=== PATIENT | female | born 1985 | race Hispanic/Latino ===

== ENCOUNTER 2017-03-04 06:31 | Day surgery (SDC) | payer OTHER ==
[~2017-03-04] VITALS: Ht 157.5 cm; Wt 122.9 kg
[2017-03-04] VITALS (12 sets, daily range): BP systolic 111–144; BP diastolic 60–78; PULSE 65–97; RESP 12–19; O2SAT 94–100
[2017-03-04] MEDS ORDERED: Neostigmine 1 mg/mL 10 mL Inj ONE (06:32)
[2017-03-04] MEDS ORDERED: Ondansetron 2 mg/mL 2 mL Inj ONE (06:32)
[2017-03-04] MEDS ORDERED: Succinylcholine Chloride 20 mg/mL 5 mL Inj ONE (06:32)
[2017-03-04] MEDS ORDERED: Rocuronium 10 mg/mL 5 mL Inj ONE (06:32)
[2017-03-04] MEDS ORDERED: Dexamethasone 4 mg/mL Inj ONE (06:32)
[2017-03-04] MEDS ORDERED: Propofol 10,000 mCg/mL 20 mL Inj ONE (06:32)
[2017-03-04] MEDS ORDERED: Glycopyrrolate 0.2 MG/ML 1mL Inj ONE (06:32)
[2017-03-04] MEDS ORDERED: Remifentanil 1 mg/3 mL Inj ONE (06:32)
[2017-03-04] MEDS ORDERED: fentaNYL-PF 50 mCg/mL 2 mL Inj ONE (06:32)
[2017-03-04] MEDS: Lactated Ringer's 1,000 ML IV SCH ×2 (06:53→08:24)
[2017-03-04] MEDS ORDERED: Bupivacaine-MPF 0.25%/EPI 30 mL Inj INJ ONE (08:24)
[2017-03-04] MEDS ORDERED: Lactated Ringer's 1,000 ML IV SCH (08:49)
[2017-03-04] MEDS ORDERED: Lactated Ringer's 500 ML IV PRN (08:49)
--- NOTE | 2017-03-04 08:49 | PCM.HPANE ---
Patient Data Surgeon Admitting Provider: Attending Provider:Ghazala Ríos MD Primary Care Physician:Pascual Garcia MD Other Provider:Arcelia Jacobsoningham Anesthesia Reason for Visit Biliary Colic Ht/WT & BMI Height (Feet): 5 Height (Inches): 2 Weight (Kilograms): 122.9 Body Mass Index 49.00 Allergies Coded Allergies: labetalol (Verified Allergy, Severe, hives, ITCHING, 02/27/17) Past Anesthesia History Anesthesia History: Positive for:: Anesthesia Reactions (PT SAYS SHE "DOESN'T DO WELL W/ ANESTHESIA"-NO SPECIFIC COMPLAINTS), Denies:: Malignant Hyperthermia Diabetes History Hx Diabetes?: No MRSA MRSA: No Medications Hypertension Medication: No Home Meds Incl Beta Omar: No No Active Prescriptions or Reported Meds History History of ENT Problems?: No HEENT History: Denies:: Abnormal Airway Cataracts Difficult Intubation Dysphagia Glaucoma Hearing Problem Sinus Problem TMJ Denture Type: None Teeth Condition: Within Normal Limits Hx of Heart Problems?: No Cardiovascular History: Denies:: AICD Abdominal Aortic Aneurism Atrial Fibrillation Cardiac Surgery Chest Pain Congestive Heart Failure Coronary Artery Disease Edema Heart Murmur Hypertension (during only) Irregular Heartbeat Pacemaker Peripheral Vascular Rheumatic Fever Thrombophlebitis Valvular Heart Disease Hx of Respiratory Problem?: Yes Respiratory History: Denies:: Asthma COPD Chest Surgery Cough Dyspnea Emphysema Hemoptysis Oxygen Administration Pneumonia Pulmonary Embolism Tuberculosis Use of C-PAP Machine (SNORES) Use of Inhalers / NEBS Hx Neurologic Problems?: Yes Hx of GI Problems?: Yes Hx of Problems?: No Female Hx: Denies:: Currently (S/P LTL HX MISSED AB X2) Problems with Breasts? Skin History: Denies:: History Skin Disorders? Pressure Ulcers Hx Musculoskeletal Problems?: No Hx of Psycho/Social Problems?: Yes Psycho Social History: Positive for:: Hx Depression Hx Surgeries?: Yes (LTL) Hx Any Other Health Problems?: Yes Other History: Positive for:: Hospitalization (CHILDBIRTH) Denies:: Cancer Endocrine Disease Thyroid Disease History Blood Transfusions: Denies:: Blood Transfusions Hx Diabetes: No Hx Alcohol Use: YesHx Substance Use: No Smoking Status: Never Smoker Unknown if Ever Smoker Have You Smoked inLast 12 mo: No Stop/Bang S-Snoring: Do You Snore Loudly: Yes T-Tired: feel tired, fatigued: Yes O-Obsered: Observed not breath: No P-Blood Pressure: treated: No B- Body Mass Index > 35 kg/m2: Yes A- Age over 50: No N- Neck Large Circumference: Yes G- Gender Male: No ALEXUS Total Score: 4 ALEXUS Risk Assessment: High Risk, =/>3 Yes Risk Assessment Category Category 1A: Patient has history of documented sleep apnea, and HAS NOT received any narcotic, sedative or anesthesia administration during this stay. Category 1B: Patient has history of documented sleep apnea, and HAS received any narcotic , sedative or anesthesia administration during this stay Category 2: Patient has SUSPECTED Obstructive Sleep Apnea, and HAS received any narcotic , sedative or anesthesia administration during this stay. Category 3: Patient has SUSPECTED Obstructive Sleep Apnea and HAS NOT received narcotic, sedative or anesthesia administration during this stay. Category 4: Outpatient in Procedural Areas with known sleep apnea or who screen positive for High Risk via the STOP/BANG questionnaire. Exam Exam Vital Signs Vital Signs Date Time Temp Pulse Resp B/P Pulse Ox O2 Delivery O2 Flow Rate FiO2 03/04/17 06:59 36.5 77 16 111/61 96 Room Air General Appearance: Alert, Oriented X3, Cooperative, No Acute Distress HEENT/AIRWAY: MP 2 Lungs: Clear to Auscultation, Normal Air Movement Heart: Exam Unremarkable, Regular Rate/Rhythm, No Murmurs/Rubs/Gallops Meds/Labs/Diagnostics Admission Meds Current Medications Lactated Ringer's (Lr) 1,000 ml @ 120 mls/hr Q8H20M IV Last administered on t 06:53; Start 03/04/17 at 05:00; Stop 03/04/17 at 13:19 Plan Impression Patient chart reviewed, patient interviewed and anesthestic plan with risks, benefits, and alternatives discussed, and informed consent obtained. NPO per Anesth. Guidelines: Yes ASA Physical Status: ASA3 Severe Disease Anesthetic Support Modalities: [place] Scope (available) Anesthetic Plan: GA Bene/Risks/Altern/Consents: Yes HP Complete Prior to Induction: Yes Linwood Ventura MD Mar 04, 2017 08:05
[2017-03-04] MEDS ORDERED: Atropine 0.4 mg/mL Inj IVPUSH PRN (08:50)
[2017-03-04] MEDS ORDERED: MetoCLOpramide 5 mg/mL 2 mL Inj IVPUSH PRN (08:50)
[2017-03-04] MEDS ORDERED: HYDROmorphone 1 mg/mL Inj IVPUSH PRN (08:50)
[2017-03-04] MEDS ORDERED: fentaNYL-PF 50 mCg/mL 2 mL Inj IVPUSH PRN (08:50)
[2017-03-04] MEDS ORDERED: EPHEDrine Sulfate 50 mg/mL Inj IVPUSH PRN (08:50)
[2017-03-04] MEDS ORDERED: Ondansetron 2 mg/mL 2 mL Inj IVPUSH PRN (08:50)
[2017-03-04] MEDS ORDERED: Phenylephrine 10,000 mCg/mL Inj IVPUSH PRN (08:50)
[2017-03-04] MEDS ORDERED: oxyCODONE-Acetamin 5-325 mg Tablet PO PRN (09:50)
--- NOTE | 2017-03-04 09:55 | PCM.SURGOP ---
Surgical Operative Report Date of Service: Mar 04, 2017 Pre Operative Diagnosis Biliary colic Post Operative Diagnosis Chronic cholecystitis Procedure: Laparoscopic cholecystectomy Surgeon and State Fire Marshal: Surgeon: Ghazala Ríos MD Assistants: Paulino Milan PA-C; AIDAN Sandy The presence of an exceptional children teacher assistant was necessary for dissection and retraction. Indication for Procedure This is a 31-year-old woman having intermittent postprandial right upper quadrant pain. On abdominal ultrasound she was found to have gallstones and was diagnosed with biliary colic preoperatively. Findings: 1. Moderately inflamed gallbladder with overlying adhesions. 2. Intraoperative cholangiogram was attempted, but could not be performed because the cystic duct was smaller than the cholangiocatheter. Procedure Details The patient was brought to the operating room and placed in supine position. General endotracheal anesthesia was smoothly induced. Antibiotics were infused. A warming blanket and SCDs were placed. A foot board was placed. The operative field was prepped and draped in sterile fashion. A pause was performed to confirm the correct patient, procedure, site, and side. A vertical 10 mm incision was made 7 cm above the umbilicus due to body habitus. The abdomen was entered using an Optiview port. Three additional 5 mm ports were placed in the epigastrium and right upper quadrant. The gallbladder was identified and lifted cephalad. There were moderate adhesions due to cholecystitis. The adhered omental fat was gently dissected off of the gallbladder. Dissection then proceeded to identify the cystic duct, cystic artery, and to expose the cystic plate. Once there were two and only two structures entering the gallbladder, a clip was placed on the gallbladder side of the cystic duct. A ductotomy was made and a cholangiocatheter was attempted to be inserted, but the duct was smaller than the cholangiocatheter. Therefore the cholangiogram was aborted. Two clips were placed on the cystic duct and it was divided. The cystic artery was clipped on both the gallbladder side and the patient's side and divided. The gallbladder was then removed from its bed on the liver with electrocautery. Prior to completely removing the gallbladder , a final look was taken at the stump of the cystic artery and cystic duct, and there was no bleeding or bile leak. The gallbladder was then fully removed from the liver and placed in an EndoCatch bag and removed. The three 5 mm ports were removed under direct vision, the 10 mm mid abdominal port was removed , and an interrupted 0 PDS was used to close the fascia. There was no fascial defect at the end of the case. 0.5% Marcaine with epinephrine was infused at all port sites for postoperative analgesia. The skin was closed with subcuticular 4-0 Monocryl. Sterile dressings were placed. Sponge, instrument, and needle counts were correct at the end of the procedure. The patient was awakened from general anesthesia and taken to the postoperative care unit in good condition. Complications There were no periprocedural complications identified. Surgical Specimen Removed: Yes Specimen sent to Pathology: Yes Surgical Specimen description: Gallbladder Anesthetic Plan: GA Grafts, Implants: None Output, Estimated Blood Loss: 2 (ml) Blood Administration during conroy: No Ghazala Ríos MD Mar 04, 2017 09:55
--- NOTE | 2017-03-04 10:11 | PCM.ANEP1 ---
Post Anesthesia Phase 1 PACU Phase 1 Assessment Date of Service: Mar 04, 2017 Vital Signs Vital Signs Date Time Temp Pulse Resp B/P Pulse Ox O2 Delivery O2 Flow Rate FiO2 03/04/17 10:06 97 19 128/62 100 Simple Mask 10 03/04/17 10:01 85 16 144/78 100 Simple Mask 10 03/04/17 09:55 36.9 93 12 137/77 100 Simple Mask 10 03/04/17 06:59 36.5 77 16 111/61 96 Room Air Anesthetic Administered: GA Level of Alertness: Awake, talking DU's with Equal Strength: Yes Pain: No Nausea or Vomiting: No Cardiovascular Function and Hy: Yes Oxygen Delivery: Simple Mask Lungs: Clear to Auscultation, Normal Air Movement Complications: No Follow up Care: No Patient Instructions Provided: Yes (per) Linwood Ventura MD Mar 04, 2017 10:11
--- NOTE | 2017-03-05 17:17 | PATH ---
SURGICAL PATHOLOGY Attending Physician:Ghazala Ríos MD CASE STATUS: Signed Out PATIENT NAME: EITAN BOB PID: [id number] : [id number] DATE COLLECTED:03/04/2017 16:04 SPECIMEN: Gallbladder CLINICAL HISTORY: BILIARY CHOLIC 1. GALLBLADDER FINAL DIAGNOSIS: 1.GALLBLADDER, CHOLECYSTECTOMY: CHRONIC CHOLECYSTITIS WITH CHOLELITHIASIS AND CHOLESTEROLOSIS. NO EVIDENCE OF DYSPLASIA OR MALIGNANCY. ICD10 CODE K80.60 GROSS DESCRIPTION: The specimen is received in one formalin filled container labeled with the patient's name, sublabeled "gallbladder" and consists of an intact 9.0 x 3.0 x 3.0 CM gallbladder. The serosa is smooth. The cystic duct possibly identified. The wall is 0.1-0.4 CM in thickness. The mucosa is a dark green in color. The lumen contains a dark green thick mucoid material and one green kraft rough calculus which measures 3.0 x 2.0 x 2.0 CM. 5 quality control representative sections are submitted in one cassette. 03/04/2017 DAC MICRO DESCRIPTION: See diagnosis. ICD-9 CODES: CPT CODES: 1: 37103 Electronically Signed Out Marlyn Morgan MD [facility] [address], [place] [address] Technical component performed at [facility], [facility] [address], [place], [address]
== END 2017-03-04 23:59 | disposition home or self-care (01) ==
LOC: SAS 06:31
PROVIDERS: ATTEND Surgery
PROC: 0FT44ZZ Resection of Gallbladder, Percutaneous Endoscopic Approach (ICD-10-PCS; principal; 2017-03-04 08:30)
DX: K80.10 Calculus of gallbladder with chronic cholecystitis without obstruction (principal); K82.8 Other specified diseases of gallbladder
CPT/HCPCS: 47562; 88304; J0330; J1100; J2250; J2405; J2710; J3010; J7120

== ENCOUNTER 2017-03-12 14:52 | Emergency (ER) | payer OTHER ==
[~2017-03-12] VITALS: Ht 157.5 cm; Wt 118.2 kg
[2017-03-12 14:56] VITALS: BP 131/99; PULSE 71; RESP 16; O2SAT 100
--- NOTE | 2017-03-12 15:37 | ED.REPORT ---
HPI-General Illness Date of Service March 12, 2017 ED Provider: Theodore Pan MD A 31 year old female with a history of cholelithiasis s/p laparoscopic cholecystectomy (03/04) presents to the ED complaining of post operative pain and chills that began approx. one week ago. Dr. Ríos performed the operation on 03/04 and is currently requesting CT and labs for the patient. Patient had a recent US and blood work that revealed a liver abscess. Associated symptoms include dizziness, weakness, chills, shaking and SOB following mild exertion. Her symptoms have improved but have not resolved. Patient has been taking levofloxacin as prescribed. She denies fever, abdominal pain, hematuria, dysuria , cough. She denies history of blood clots. Patient is currently on her menstrual cycle. Nursing Notes Stated Complaint: POST SURGERY COMPLICATIONS Chief Complaint: General Complaint Nursing Notes Reviewed: Yes Allergies: Coded Allergies: labetalol (Verified Allergy, Severe, hives, ITCHING, 02/27/17) No Active Prescriptions or Reported Meds General Time Seen by MD: 15:32 Chief Complaint Dizziness Hx Obtained From: Patient Arrived By: Walk-in Sudden in Onset?: No Onset Occurred: 1 week ago Symptom Duration: Since onset Associated with: Reports: Difficulty breathing, Dizziness, Shortness of breath , Weakness, Denies: Abdominal pain, Cough, Fever, Syncope Pertinent Negative: Pt denies other symptoms Recent Healthcare: Recent doctor visit, Recent hospitalization Past Medical History Past Medical History Recent Liver abscesses (03/04/2017) Depression Past Surgical History Reports: Cholecystectomy Smoking History Never Smoker Social History Other Social History: Good social support, Local resident Ambulatory Status Independent Review of Systems Full Review of Systems Constitutional: Reports: Chills, Denies: Fever Respiratory: Reports: Dyspnea on exertion, Shortness of breath, Denies: Non-productive cough GI: Denies: Abdominal pain Female: Denies: Dysuria, Hematuria, Neurologic: Reports: Dizziness, Shaking, Weakness Complete sys rev & neg: except as marked. Physical Exam Vital Signs Vital Signs Date Time Temp Pulse Resp B/P Pulse Ox O2 Delivery O2 Flow Rate FiO2 03/12/17 18:09 66 16 112/72 100 Room Air 03/12/17 14:56 71 16 131/99 100 Room Air 03/12/17 14:56 36.6 Initial VS: Reviewed Neck: Supple, Non-tender, Full range of motion Skin: Warm, Dry, No cyanosis Neurologic: Alert, Oriented, Nonfocal Psychiatric: Mood/affect normal, Behavior normal, Normal thought content General/Constitutional: Awake, Alert, No acute distress, Not toxic appearing Head / Eyes: Atraumatic, Normocephalic, PERRL ENT: Atraumatic, Airway patent, Mucous membranes moist, Pharynx NL Respiratory / Chest: Atraumatic, Breath sounds NL, Breath sounds = bilat, No respiratory distress Cardiovascular: Heart rate NL, Regular rhythm, Heart sounds NL, No gallop, No murmurs, No rubs, Peripheral circulation NL, Pulses = bilaterally Abdomen: Atraumatic, Soft, Non-tender (Tolerates firm palpation to all 4 quadrants), No guarding, No rebound, No distention ABDOMEN: Well healing laproscopic scar to the RUQ Upper Extremities Upper Extremity / MS: Atraumatic, Neurologic intact, Vascular intact, No edema Lower Extremity / Pelvis / MS: Atraumatic, Inspection NL, Non-tender (no calf tenderness), Neurologic intact, Vascular intact, No edema (no calf swelling) Interpretation & Diagnostics Lab Results Interpretation Result Diagram: 03/12/17 1555 03/12/17 1555 Test 03/12/17 15:55 White Blood Count 10.9th/mm3 (3.8-10.1) Red Blood Count 4.87mil/mm3 (3.90-5.20) Hemoglobin 12.9g/dL (12.0-15.6) Hematocrit 40.6% (35.0-46.0) Mean Corpuscular Volume 83.4fL (81-100) Mean Corpuscular Hemoglobin 26.5pg (27.0-35.0) Mean Corpuscular Hemoglobin Concent 31.8% (32.0-37.0) Red Cell Distribution Width 14.2% (12.3-15.4) Platelet Count 442bil/L (150-400) Neutrophils (%) (Auto) 57.6% (40-74) Lymphocytes (%) (Auto) 30.6% (14-46) Monocytes (%) (Auto) 6.9% (4-12) Eosinophils (%) (Auto) 3.9% (0-5) Basophils (%) (Auto) 0.6% (0-3) Prothrombin Time 9.8sec (8.1-12.5) Prothromb Time International Ratio 0.92ratio Sodium Level 139mEq/L (134-144) Potassium Level 3.6mEq/L (3.5-5.2) Chloride Level 100mEq/L (97-108) Carbon Dioxide Level 23mmol/L (18-29) Blood Urea Nitrogen 10mg/dL (6-20) Creatinine 0.62mg/dL (0.57-1.00) Estimat Glomerular Filtration Rate 159mL/min (>59) Glucose Level 102mg/dL (60-99) Lactic Acid Level 1.8mmol/L (0.4-2.0) Calcium Level 8.8mg/dL (8.5-10.1) Magnesium Level 1.8mg/dL (1.6-2.6) Total Bilirubin 0.2mg/dL (0.0-1.2) Aspartate Amino Transf (AST/SGOT) 16U/L (0-50) Alanine Aminotransferase (ALT/SGPT) 13U/L (0-32) Alkaline Phosphatase 82U/L (25-150) Total Protein 7.1g/dL (6.4-8.4) Albumin 3.6g/dL (3.4-5.0) Lipase 42U/L (13-60) Human Chorionic Gonadotropin, Qual Negative (Negative) Point of Care Testing: Preg test neg - urine CT Chest Interpretation IMPRESSION: No evidence for pulmonary embolus. No acute disease is seen in the lungs. Recent cholecystectomy. No abnormal fluid collections are seen in the gallbladder fossa. Dictated by: Juan Carlos Cantu M.D. on 03/12/2017 at 17:20 Study type: CT pulm angiogram Interpretation / Wet Read by: Interpret - Radiologist CT Abd / Pelvis Interpretation IMPRESSION: 1. Recent laparoscopic cholecystectomy. No abnormality is identified. Specifically no liver abscess. Dictated by: Juan Carlos Cantu M.D. on 03/12/2017 at 17:23 Study type: Abdominal CT no contrast Interpretation / Wet Read by: Interpret - Radiologist Re-Eval/Medical Decision Med Decision/Clinical Course In summary, the patient is a 31 year old female with a history of cholelithiasis s/p laparoscopic cholecystectomy (03/04) who presents to the ED complaining of mild post operative pain and chills that began approx. one week ago. Dr. Ríos performed the operation on 03/04 and sent the patient to the emergency room due to ultrasound obtained 2 days ago that was concerning for possible abscess formation. The patient has been taking levofloxacin for the last 2 days and reports that she feels slightly better though does have some ongoing symptoms including shortness of breath. Upon arrival to the emergency department the patient is afebrile and hemodynamically stable. She was treated with the below medications: IV fluids Zofran hydromorphone Laboratory studies were notable as below: Mild leukocytosis Hct 40.6 CMP unremarkable neg lipase norm lactic acid 1.[address] Chest angio No evidence for pulmonary embolus. No acute disease is seen in the lungs. CT abdomen Recent laparoscopic cholecystectomy. No abnormality is identified. Specifically no liver abscess. I discussed the patient with Dr. Ríos and there was some concern for possible evolving liver abscess as well as pulmonary embolism. Therefore the broad workup as above was completed and was quite reassuring. At this time there is no evidence of blood loss, hematoma, abscess and the patient is nontoxic in appearance. I feel that she is appropriate for outpatient management. Patient discussed again with Dr. Ríos who is in agreement. Plan to finish the course of levofloxacin and follow-up in clinic in the next couple of days. Prior to discharge follow-up and return precautions were reviewed in detail with the patient who verbalized understanding and agreement with the plan. The patient was discharged in stable condition. Time of Eval: 17:45 Patient Status: Condition improved Re-Evaluation/Progress Note: Patient is informed of her CT results and diagnosis. All of the patient's questions are addressed. She understands and agrees with treatment plan. Consultation #1: Referral / Consult Name: Ghazala Ríos MD Consulted With: Surgeon Call Returned at: 16:00 Deputy Juvenile Officer: Will see patient, Agrees with eval, Agrees with plan Note: Discuss current course of treatment Consultation #2: Referral / Consult Name: Ghazala Ríos MD Consulted With: Surgeon Call Returned at: 17:54 Deputy Juvenile Officer: Will see patient, Agrees with eval, Agrees with plan Note: Agrees with plan to follow up with the patient in the clinic Counseled Regarding: Diagnosis, Lab results, Need for follow-up, When/why to return to ED Discharge & Departure Primary Impression: Dizziness Additional Impressions: Shortness of breath Status post laparoscopic cholecystectomy Chills Disposition: Home Discharge Condition All VS Reviewed: Yes Condition: Improved Additional Instructions: Thank you for seeking care at the emergency room. Our primary goal today in the ED was to evaluate you for any life-threatening conditions. Your evaluation was reassuring. Continue to take levofloxacin as directed. You should follow-up with Dr. Ríos in the next week for a recheck. You should return to the ED immediately if you develop fevers, vomiting, cough, shortness of breath, chest pain, lightheadedness, weakness or any other concerning signs or symptoms. Referrals: Pascual Garcia MD (PCP) Scribe Attestation Portions of this note were transcribed by Lala Alberto. I, Dr. Pan personally performed the history, physical exam and medical decision-making; I reviewed and confirmed the accuracy of the information in the transcribed note. Signed by: Rosalia Reyes, 03/12/17 1700. copies to: Ghazala Ríos MD; Pascual Garcia MD, Beck O MD March 12, 2017 15:37 LALA ALBERTO March 12, 2017 15:47
[2017-03-12] MEDS ORDERED: 0.9% Sodium Chloride 1,000 ML IV ONE (15:38)
[2017-03-12] MEDS ORDERED: Ondansetron 2 mg/mL 2 mL Inj IVPUSH ONE (15:40)
[2017-03-12] MEDS ORDERED: HYDROmorphone 0.5 mg/0.5 mL iSecure Syringe IVPUSH PRN (15:40)
[2017-03-12 16:27] LABS: BASOPHILS % (AUTO) 0.6 % (0-3); EOSINOPHILS % (AUTO) 3.9 % (0-5); MONOCYTES % (AUTO) 6.9 % (4-12); Mean Corpuscular Hemoglobin 26.5 pg (27.0-35.0); Mean Corpuscular Volume 83.4 fL (81-100); NEUTROPHILS % (AUTO) 57.6 % (40-74); Platelet Count 442 bil/L (150-400)
[2017-03-12 16:28] LABS: INR 0.92 ratio
[2017-03-12 16:35] LABS: Lipase 42 U/L (13-60); Magnesium 1.8 mg/dL (1.6-2.6)
--- NOTE | 2017-03-12 17:24 | DRSVH ---
PROCEDURE: CT ANGIO CHEST PULMONARY EMBOLISM ([id number]) INDICATIONS: concern for PE, post op TECHNIQUE: After the administration of intravenous contrast, 2 mm thick sections acquired from the pulmonary api jorge to the posterior costophrenic angles. 3-dimensional maximum intensity projection (MIP) coronal a nd sagittal reformats were then acquired through the thorax. For radiation dose reduction, the follo wing was used: automated exposure control, adjustment of mA and/or kV according to patient size. COMPARISON: None. FINDINGS: Image quality: Good Pulmonary arteries: Pulmonary arteries are normal in size, and demonstrate no intraluminal filling d efects to suggest central pulmonary embolism. Lungs and pleura: Lungs are clear. No pleural effusions or pneumothorax. Central and peripheral ai rways are patent. Mediastinum: Heart size is normal, without pericardial effusion. No mediastinal or hilar adenopathy . Thoracic aorta is normal in caliber and enhancement. Esophagus is normal in caliber, without hiat al hernia. Bones and chest wall: No suspicious bony lesions. Ribs and thoracic spine appear intact throughout. Thyroid gland is within normal limits. No axillary or supraclavicular adenopathy. Abdomen: Visualized upper abdominal solid organs appear normal in the early arterial phase of enhanc ement. IMPRESSION: No evidence for pulmonary embolus. No acute disease is seen in the lungs. Recent cholecystectomy. No abnormal fluid collections are seen in the gallbladder fossa. Dictated by: Juan Carlos Cantu M.D. on 03/12/2017 at 17:20 Approved by: Juan Carlos Cantu M.D. on 03/12/2017 at 17:23
--- NOTE | 2017-03-12 17:30 | DRSVH ---
PROCEDURE: CT ABDOMEN AND PELVIS WITH CONTRAST ([id number]) INDICATIONS: s/p lap monique, abscess? TECHNIQUE: After the administration of intravenous contrast, 5 mm thick sections acquired from the diaphragm to the symphysis. 5 mm coronal and sagittal reformats were acquired. For radiation dose reduction, the following was used: automated exposure control, adjustment of mA and/or kV according to patient siz e. COMPARISON: None. FINDINGS: Image quality: Good ABDOMEN: Lung bases: Lung bases are clear. Heart size is normal. Solid organs: Liver and spleen are normal in size and enhancement. Gallbladder has been removed. No fluid collection or abnormal air collection.. Biliary system is non dilated. Pancreas enhances nor cecil. No adrenal nodules. Kidneys demonstrate normal size and enhancement, without hydronephrosis. Peritoneum and bowel: Bowel loops demonstrate normal wall thickness and caliber. No free fluid or a ir. There is a normal appendix. Nodes and vessels: No retroperitoneal or mesenteric adenopathy by size criteria. Aorta and inferior vena cava are normal in size. Miscellaneous: No ventral hernias. PELVIS: Genitourinary: Bladder wall thickness is normal. Uterus and ovaries are grossly normal on CT. Air pa ttern suggests tampon in the vagina. Miscellaneous: No inguinal hernias or adenopathy. Bones: No suspicious bony lesions. No vertebral body compression fractures. IMPRESSION: 1. Recent laparoscopic cholecystectomy. No abnormality is identified. Specifically no liver abscess. Dictated by: Juan Carlos Cantu M.D. on 03/12/2017 at 17:23 Approved by: Juan Carlos Cantu M.D. on 03/12/2017 at 17:28
[2017-03-12 18:09] VITALS: BP 112/72; PULSE 66; RESP 16; O2SAT 100
== END 2017-03-12 18:09 | disposition home or self-care (01) ==
LOC: SED 14:52
DX: R42 Dizziness and giddiness (principal); R06.02 Shortness of breath; R68.83 Chills (without fever); Z90.49 Acquired absence of other specified parts of digestive tract; Z88.8 Allergy status to other drugs, medicaments and biological substances
CPT/HCPCS: 36415; 71275; 74177; 80053; 83605; 83690; 83735; 84703; 85025; 85610; 86850; 87040; 99284; Q9967